=== PATIENT | male | born 2005 | race African-American/Black ===

== ENCOUNTER 2025-05-14 01:42 | Emergency (ER) | payer OTHER ==
[~2025-05-14] VITALS: Ht 172.7 cm; Wt 119.0 kg
[2025-05-14] MEDS ORDERED: HOME MED LIST COMPLETE! XX SCH (09:15)
[2025-05-14] MEDS ORDERED: IBUP200T46 PO (09:15)
[2025-05-14 11:57] VITALS: BP 120/68; TEMP 97.9; O2SAT 99
== END 2025-05-14 11:59 | disposition home or self-care (01) ==
LOC: M ED 01:42
DX: R45.851 Suicidal ideations (principal); F32.A Depression, unspecified; F17.200 Nicotine dependence, unspecified, uncomplicated; Z79.1 Long term (current) use of non-steroidal anti-inflammatories (NSAID)